=== PATIENT | female | born 1945 | race Caucasian/White ===

== ENCOUNTER → 2017-12-15 13:32 | Outpatient (CLI) | payer MEDICARE, OTHER, SELFPAY ==
--- NOTE | 2017-12-15 | DI.MG.S_ITS ---
BILATERAL DIGITAL SCREENING MAMMOGRAM 3D/2D WITH CAD WITH AUGMENTATION: 12/15/2017 CLINICAL: Routine screening. Family history of breast cancer. Comparison is made to exams dated: 12/11/2016 mammogram and 10/18/2015 mammogram - [facility]. The tissue of both breasts is predominantly fatty. Current study was also evaluated with a Computer Aided Detection (CAD) system. There are benign calcifications in both breasts. Bilateral breast implants are stable. No significant masses, calcifications, or other findings are seen in either breast. There has been no significant interval change. IMPRESSION: BENIGN There is no mammographic evidence of malignancy. A 1 year screening mammogram is recommended. This exam was interpreted at Station ID: [id number]. NOTE: For mammograms, a report in lay terms will be sent to the patient. Approximately 15% of breast malignancies will not be visualized mammographically. In the management of a palpable breast mass, a negative mammogram must not discourage biopsy of a clinically suspicious lesion. Electronically Signed By: Fabi martinez/kaushik:12/15/2017 16:30:32 letter sent: Normal Exam ACR BI-RADS Category 2: Benign Finding(s) 3342F
== END ==
PROVIDERS: Visit Provider Physician Assistant
DX: Z12.31 Encounter for screening mammogram for malignant neoplasm of breast (principal); Z80.3 Family history of malignant neoplasm of breast
CPT/HCPCS: 77063; 77067

== ENCOUNTER → 2018-10-11 09:37 | Outpatient (CLI) | payer MEDICARE, OTHER, SELFPAY | PROVIDERS: PCP Student in an Organized Health Care Education/Training Program; Visit Provider Student in an Organized Health Care Education/Training Program | DX: M85.88 Other specified disorders of bone density and structure, other site (principal) | CPT/HCPCS: 77080 ==

== ENCOUNTER → 2018-12-16 10:35 | Outpatient (CLI) | payer MEDICARE, OTHER, SELFPAY ==
--- NOTE | 2018-12-16 | DI.MG.S_ITS ---
BILATERAL DIGITAL SCREENING MAMMOGRAM 3D/2D WITH CAD WITH AUGMENTATION: 12/16/2018 CLINICAL: Routine screening. Family history of breast cancer. Comparison is made to exams dated: 12/15/2017 mammogram - [facility], 12/11/2016 mammogram, and 10/18/2015 mammogram - [facility]. The tissue of both breasts is predominantly fatty. Current study was also evaluated with a Computer Aided Detection (CAD) system. Bilateral breast implants are stable. There are benign calcifications in both breasts. No significant masses, calcifications, or other findings are seen in either breast. There has been no significant interval change. IMPRESSION: There is no mammographic evidence of malignancy. A 1 year screening mammogram is recommended. This exam was interpreted at Station ID: [id number]. NOTE: For mammograms, a report in lay terms will be sent to the patient. Approximately 15% of breast malignancies will not be visualized mammographically. In the management of a palpable breast mass, a negative mammogram must not discourage biopsy of a clinically suspicious lesion. Electronically Signed By: Otto hollingsworth/kaushik:12/16/2018 11:47:53 letter sent: Normal Exam ACR BI-RADS Category 2: Benign Finding(s) 3342F
== END ==
PROVIDERS: PCP Student in an Organized Health Care Education/Training Program; Visit Provider Student in an Organized Health Care Education/Training Program
DX: Z12.31 Encounter for screening mammogram for malignant neoplasm of breast (principal); Z80.3 Family history of malignant neoplasm of breast
CPT/HCPCS: 77063; 77067

== ENCOUNTER → 2018-12-17 15:20 | Outpatient (ROUT) | payer MEDICARE, OTHER, SELFPAY ==
[2018-12-17 16:40] LABS: Add Manual Diff / Slide Review NO; Basophils Absolute Auto 0 /uL (0-100); Basophils Percent Auto 0.7 % (0-2); Eosinophils Absolute Auto 200 /uL (0-450); Hematocrit 42.7 % (36-46); Hemoglobin 14.2 g/dL (12.0-16.0); Lymphocytes Absolute Auto 1400 /uL (1100-4500); Lymphocytes Percent Auto 33.3 % (25-40); Mean Corpuscular HGB Conc 33.2 % (30-36); Mean Corpuscular Hemoglobin 31.3 PG (26-34); Mean Corpuscular Volume 94.5 fL (80-100); Monocytes Absolute Auto 300 /uL (0-900); Monocytes Percent Auto 7.7 % (3-14); Neutrophils Absolute Auto 2300 /uL (1500-7000); Neutrophils Percent Auto 53.3 % (50-75); Platelet Count 218 X10^3/uL (150-400); Red Blood Cell Count 4.52 X10^6/uL (4.0-5.2); Red Cell Distribution Width 12.8 % (11.6-14.8); White Blood Cell Count 4.3 X10^3/uL (4.5-11.0)
[2018-12-17 16:49] LABS: Alanine Aminotransferase 17 IU/L (9-52); Albumin 4.2 g/dL (3.5-5.0); Albumin Globulin Ratio 1.5 (1.0-2.8); Alkaline Phosphatase 88 U/L (38-126); Aspartate Aminotransferase 25 IU/L (14-36); BUN Creatinine Ratio 15.6 (6-22); Bilirubin Total 0.6 mg/dL (0.2-1.3); Blood Urea Nitrogen 14 mg/dL (7-17); Calcium 9.7 mg/dL (8.4-10.2); Carbon Dioxide 28 mmol/L (22-32); Chloride 103 mmol/L (98-107); Cholesterol 238 mg/dL (140-199); Estimated Glomerular Filt Rate > 60.0 mL/min (>60); Globulin 2.8 g/dL (1.7-4.1); Glucose 90 mg/dL (80-110); HDL Cholesterol 52 mg/dL (40-60); HEMOLYSIS < 15 (0-50); LDL Cholesterol Calculated 143 mg/dL (<100); Potassium 4.3 mmol/L (3.4-5.1); Sodium 140 mmol/L (137-145); Triglycerides 217 mg/dL (35-150)
[2018-12-17 17:18] LABS: TSH w/ Reflex to FT4 2.23 uIU/mL (0.47-4.68)
[2018-12-17 17:36] LABS: Vitamin B12 > 1000 pg/mL (239-931)
[2018-12-21 16:37] LABS: Rubeola Measles IgG > 300.00 AU/mL (< 25.00)
== END ==
PROVIDERS: PCP Student in an Organized Health Care Education/Training Program; Visit Provider Student in an Organized Health Care Education/Training Program
DX: I10 Essential (primary) hypertension (principal); Z11.59 Encounter for screening for other viral diseases; E78.5 Hyperlipidemia, unspecified; Z13.228 Encounter for screening for other metabolic disorders; M85.80 Other specified disorders of bone density and structure, unspecified site
CPT/HCPCS: 80053; 80061; 82607; 84443; 85025; 86735; 86762; 86765

== ENCOUNTER → 2020-01-20 16:51 | Outpatient (CLI) | payer MEDICARE, OTHER, SELFPAY ==
--- NOTE | 2020-01-20 16:56 | DI.MG.S_ITS ---
BILATERAL DIGITAL SCREENING MAMMOGRAM 3D/2D WITH CAD WITH AUGMENTATION: 01/20/2020 CLINICAL: Routine screening. Family history of breast cancer. Comparison is made to exams dated: 12/16/2018 mammogram, 12/15/2017 mammogram - [facility], and 12/11/2016 mammogram - [facility]. There are scattered fibroglandular elements in both breasts. Current study was also evaluated with a Computer Aided Detection (CAD) system. Bilateral breast implants are stable. There are benign calcifications in both breasts. No significant masses, calcifications, or other findings are seen in either breast. There has been no significant interval change. IMPRESSION: BENIGN There is no mammographic evidence of malignancy. A 1 year screening mammogram is recommended. This exam was interpreted at Station ID: [id number]. NOTE: For mammograms, a report in lay terms will be sent to the patient. Approximately 15% of breast malignancies will not be visualized mammographically. In the management of a palpable breast mass, a negative mammogram must not discourage biopsy of a clinically suspicious lesion. Electronically Signed By: Otto hollingsworth/kaushik:01/21/2020 09:23:46 letter sent: Normal Exam ACR BI-RADS Category 2: Benign Finding(s) 3342F
== END ==
PROVIDERS: PCP Student in an Organized Health Care Education/Training Program; Referring Provider Student in an Organized Health Care Education/Training Program; Visit Provider Student in an Organized Health Care Education/Training Program
DX: Z12.31 Encounter for screening mammogram for malignant neoplasm of breast (principal); Z80.3 Family history of malignant neoplasm of breast
CPT/HCPCS: 77063; 77067

== ENCOUNTER → 2020-05-19 09:30 | Outpatient (CLI) | payer MEDICARE, OTHER, SELFPAY ==
[2020-05-19 12:20] LABS: COVID19 -Nasal RAPID Negative (Negative)
== END ==
PROVIDERS: PCP Student in an Organized Health Care Education/Training Program; Visit Provider Nurse Practitioner
DX: Z01.812 Encounter for preprocedural laboratory examination (principal); Z20.822 Contact with and (suspected) exposure to COVID-19
CPT/HCPCS: 87635; C9803

== ENCOUNTER → 2020-05-21 13:29 | Outpatient (CLI) | payer MEDICARE, OTHER, SELFPAY ==
--- NOTE | 2020-05-21 | DI.ECHO.S_ITS ---
[facility] +---------+ : : [id number] : : : : [id number] : : : : Phone: [phone] Echocardiogram Report + + :Name: ADAMA PARRA Study Date: 05/21/2020 Height: 67 in : :[facility] ReadingLocation: Weight: 144 lb : : Gender: Female BSA: 1.8 m2 : :: 1945 Age: 75 yrs BP: 141/94 mmHg: :Reason For Study: SUPRAVENTRICULAR TACHYCARDIA : :Ordering Physician: KYLIE, : :ERICK Performed By: Christina Lopez : :Referring: ERICK PERAZA : + + Interpretation Summary 1) Normal left ventricular size, thickness, wall motion, and systolic function (EF 60-65%). 2) Normal right ventricular size and function. 3) No significant valvular abnormalities. 4) No prior Echo available for comparison. Procedure: A two-dimensional transthoracic echocardiogram with color flow and Doppler was performed. The study quality was technically adequate. There is no prior echocardiogram noted for this patient. The patient was in sinus rhythm with heart rates between 62-73 bpm during the exam. Left Ventricle: The left ventricle is normal in size and wall thickness. The ejection fraction is estimated to be 60-65%. Left ventricular systolic function appears normal without focal wall motion abnormalities. Right Ventricle: The right ventricle is normal in size and function. Atria: Both atria are normal in size. There is no Doppler evidence for an interatrial shunt. Mitral Valve: The mitral valve is normal in structure and function. There is trace mitral regurgitation. Aortic Valve: The aortic valve is trileaflet. The aortic valve opens well. There is no aortic valve stenosis. No aortic regurgitation is present. Tricuspid Valve: The tricuspid valve is normal in structure and function. There is a trace or physiologic amount of tricuspid regurgitation. Pulmonary artery pressures cannot be estimated because of the lack of a measurable TR jet velocity but the IVC suggests a CVP of around 3 mmHg. Pulmonic Valve: The pulmonic valve leaflets are thin and pliable; valve motion is normal. There is mild pulmonic regurgitation. Great Vessels: The aortic root is normal size. The dimensions of the ascending aorta are normal. The IVC is of normal diameter and collapses greater than 50% with a sniff. This suggests a low right atrial pressure of 3 mm Hg. Pericardium/ Pleura There is no pericardial effusion. There is no pleural effusion. MMode/2D Measurements & Calculations LVIDd: 4.3 cm LVOT diam: 2.1 cm LVIDs: 2.7 cm Ao root diam: 3.4 cm FS: 38.7 % asc Aorta Diam: 3.1 cm EPSS: 0.49 cm Ao Arch Diam (Prox Trans): 2.9 cm IVSd: 0.91 cm LVPWd: 1.0 cm LV boone. diameter/BSA (cm/m^2): 2.5 LV sys. diameter/BSA (cm/m^2): 1.5 LA A2 area: 17.3 cm2 RA long axis: 5.0 cm LA A4 area: 12.0 cm2 RA area: 13.5 cm2 LA length (vol): 4.1 cm RA vol: 31.1 ml LA vol: 43.0 ml RA : 17.7 ml/m2 LA vol index: 24.5 ml/m2 IVC diam: 1.00 cm RVD1 (basal): 2.7 cm TAPSE: 1.9 cm Doppler Measurements & Calculations Ao V2 max: 95.8 cm/sec LVOT Max Frank: 91.4 cm/sec Ao V2 mean: 68.9 cm/sec LV V1 max P.3 mmHg Ao max P.7 mmHg LV V1 VTI: 22.4 cm Ao mean P.1 mmHg MARTA(I,D): 3.4 cm2 Ao V2 VTI: 22.0 cm MARTA(V,D): 3.2 cm2 sev ratio: 1.0 MARTA indexed to BSA (cm^2/m^2): 1.9 MV E max frank: 73.7 cm/sec PA V2 max: 64.6 cm/sec MV A max frank: 65.7 cm/sec PA V2 mean: 39.9 cm/sec MV E/A: 1.1 PA mean P.77 mmHg Med Peak E' Frank: 5.1 cm/sec PA pr(Accel): 17.3 mmHg E/E' med: 14.5 Lat Peak E' Frank: 7.0 cm/sec E/E' lat: 10.5 E/e' average: 12.5 MV dec time: 0.22 sec SV(LVOT): 74.2 ml Reading Physician:08:48 PM
--- NOTE | 2020-05-21 16:00 | PM.TREADMILL ---
Cardiac Stress Test Report Referral & Results Date Patient Seen: 05/21/20 Time Patient Seen: 16:00 Requesting provider: Jonnathan Peraza Indication: SVT Rest ECG: sinus rhythm Procedure Note: Standard Moe protocol, 6:30, 6.5 METS Very Good exercise capacity, WHIT -24% Normal hemodynamic response to exercise No chest pain or anginal symptoms No significant ST changes at peak exercise but technically difficult tracing due to motion artifact No ectopy Impression: Normal exercise stress test Please note: Actual ECG tracings can be found in the PACS system.
--- NOTE | 2020-05-21 19:51 | DI.NM.S_ITS ---
DATE OF SERVICE: 05/21/2020 PROCEDURE: Exercise perfusion study. INDICATION: Palpitation, atrial tachycardia. EXERCISE STRESS TEST: The patient underwent exercise stress test under the supervision of an attending staff. She walked on Moe protocol for 6 minutes 30 seconds, achieved 100.4 percent of target heart rate with maximum heart rate about 152 beats per minute. Resting blood pressure about 132/82. Peak blood pressure 178/88. The patient achieved 7 METs of workload and functional aerobic impairment -24 percent. No chest pain or anginal symptoms. Baseline rhythm was sinus. During exercise, there were significant artifacts seen which makes stress EKG uninterpretable. However, in immediate recovery and early recovery, no significant ischemic changes seen. No significant arrhythmias seen. CONCLUSION: The stress electrocardiogram is uninterpretable. However, in early recovery and immediate recovery, no obvious ischemic changes or significant arrhythmias seen. Excellent exercise capacity. WHIT -24 percent. Normal hemodynamic response. No anginal symptoms. Correlate clinically. Rosio Arzola - Patricio/cele doc#: [id number]/job#: [id number] dd: 05/21/2020 17:34:00 dt: 05/21/2020 19:37:00 DICTATING MD/COPIES TO: Alessia Diallo MD COPIES MNE: EDUARDO;
== END ==
PROVIDERS: PCP Student in an Organized Health Care Education/Training Program; Referring Provider Internal Medicine Cardiovascular Disease; Visit Provider Internal Medicine Cardiovascular Disease
DX: I37.1 Nonrheumatic pulmonary valve insufficiency (principal); I47.1 Supraventricular tachycardia; R00.2 Palpitations
CPT/HCPCS: 93017; 93306

== ENCOUNTER → 2021-02-01 15:38 | Outpatient (CLI) | payer MEDICARE, OTHER, SELFPAY ==
--- NOTE | 2021-02-01 | DI.MG.S_ITS ---
BILATERAL DIGITAL SCREENING MAMMOGRAM 3D/2D WITH CAD WITH AUGMENTATION: 02/01/2021 CLINICAL: Patient presents for routine screening. S/P bilateral augmentation. Family history of breast cancer. Comparison is made to exams dated: 01/20/2020 mammogram, 12/16/2018 mammogram, and 12/15/2017 mammogram - [facility]. There are scattered fibroglandular elements in both breasts. Current study was also evaluated with a Computer Aided Detection (CAD) system. Bilateral breast implants are stable. There are benign calcifications in both breasts. No significant masses, calcifications, or other findings are seen in either breast. There has been no significant interval change. IMPRESSION: BENIGN There is no mammographic evidence of malignancy. A 1 year screening mammogram is recommended. This exam was interpreted at Station ID: [id number]. NOTE: For mammograms, a report in lay terms will be sent to the patient. Approximately 15% of breast malignancies will not be visualized mammographically. In the management of a palpable breast mass, a negative mammogram must not discourage biopsy of a clinically suspicious lesion. Electronically Signed By: Romulo Hinkle acr/penrad:02/01/2021 17:08:58 letter sent: Normal Exam ACR BI-RADS Category 2: Benign Finding(s) 3342F
== END ==
PROVIDERS: PCP Student in an Organized Health Care Education/Training Program; Referring Provider Student in an Organized Health Care Education/Training Program; Visit Provider Student in an Organized Health Care Education/Training Program
DX: Z12.31 Encounter for screening mammogram for malignant neoplasm of breast (principal); Z80.3 Family history of malignant neoplasm of breast; Z98.82 Breast implant status
CPT/HCPCS: 77063; 77067

== ENCOUNTER → 2021-10-11 09:59 | Outpatient (CLI) | payer MEDICARE, OTHER, SELFPAY | PROVIDERS: PCP Student in an Organized Health Care Education/Training Program; Referring Provider Student in an Organized Health Care Education/Training Program; Visit Provider Student in an Organized Health Care Education/Training Program | DX: Z78.0 Asymptomatic menopausal state (principal); M85.89 Other specified disorders of bone density and structure, multiple sites | CPT/HCPCS: 77080 ==

== ENCOUNTER → 2022-02-10 13:38 | Outpatient (CLI) | payer MEDICARE, OTHER, SELFPAY ==
--- NOTE | 2022-02-10 | DI.MG.S_ITS ---
BILATERAL DIGITAL SCREENING MAMMOGRAM 3D/2D WITH CAD WITH AUGMENTATION: 02/10/2022 CLINICAL: Routine screening. Family history of breast cancer. Comparison is made to exams dated: 02/01/2021 mammogram, 01/20/2020 mammogram, and 12/16/2018 mammogram - [facility]. There are scattered areas of fibroglandular density in both breasts (category b / 25%-50% glandular tissue). Current study was also evaluated with a Computer Aided Detection (CAD) system. Bilateral breast implants are stable. There are benign calcifications in both breasts. No significant masses, calcifications, or other findings are seen in either breast. There has been no significant interval change. IMPRESSION: BENIGN There is no mammographic evidence of malignancy. A 1 year screening mammogram is recommended. Based on the Tyrer Cuzick model (a risk assessment model) the patient's lifetime risk is 6.0% and her 10 year risk is 0.0%. According to the ACR, ACS, and NCCN guidelines, an annual breast MRI exam along with mammogram is recommended if the patient's lifetime risk is 20% or greater. This exam was interpreted at Station ID: [id number]. NOTE: For mammograms, a report in lay terms will be sent to the patient. Approximately 15% of breast malignancies will not be visualized mammographically. In the management of a palpable breast mass, a negative mammogram must not discourage biopsy of a clinically suspicious lesion. Electronically Signed By: Malcolm Little M.D., jr/kaushik:02/10/2022 15:49:20 letter sent: Normal Exam ACR BI-RADS Category 2: Benign Finding(s) 3342F
== END ==
PROVIDERS: PCP Student in an Organized Health Care Education/Training Program; Referring Provider Student in an Organized Health Care Education/Training Program; Visit Provider Student in an Organized Health Care Education/Training Program
DX: Z12.31 Encounter for screening mammogram for malignant neoplasm of breast (principal); Z80.3 Family history of malignant neoplasm of breast
CPT/HCPCS: 77063; 77067

== ENCOUNTER 2022-06-01 10:16 | Emergency (ER) | payer MEDICARE, OTHER, SELFPAY ==
[2022-06-01 10:45] VITALS: BP 170/85; PULSE 73; RESP 18; TEMP 36.4; O2SAT 97; BMI 22.4
[2022-06-01 11:01] LABS: Appearance Urine UA CLEAR; Bilirubin Urine UA NEGATIVE (NEGATIVE); Color Urine UA YELLOW; Glucose Urine UA NEGATIVE (Negative); Ketones Urine UA NEGATIVE (NEGATIVE); Leukocyte Esterase Urine UA TRACE (NEGATIVE); Nitrite Urine UA NEGATIVE (Negative); Occult Blood Urine UA TRACE-INTACT (Negative); Protein Urine UA NEGATIVE (Negative); Specific Gravity Urine UA <=1.005 (1.000-1.035); Urobilinogen Urine UA 0.2 E.U./dL (0.2)
[2022-06-01 11:07] LABS: pH Urine UA 6.5 (4.5-8.0)
[2022-06-01 11:44] LABS: Bacteria Urine Few (2-10); Culture Indicated Urine Cult Not Indicated; RBC Urine 0-1/HPF (0-5/HPF); Squamous Epithelial Cell Urine None Seen (0-5/HPF); WBC Urine 0-1/HPF (0-5/HPF)
== END 2022-06-01 12:20 | disposition left against medical advice (07) ==
PROVIDERS: Emergency Provider Emergency Medicine; PCP Student in an Organized Health Care Education/Training Program
DX: R30.0 Dysuria (principal)
CPT/HCPCS: 81001; 99281

== ENCOUNTER → 2023-02-20 10:58 | Outpatient (CLI) | payer MEDICARE, OTHER, SELFPAY ==
--- NOTE | 2023-02-20 11:00 | DI.MG.S_ITS ---
BILATERAL DIGITAL SCREENING MAMMOGRAM 3D/2D WITH CAD WITH AUGMENTATION: 02/20/2023 CLINICAL: Routine screening. Family history of breast cancer. Comparison is made to exams dated: 02/10/2022 mammogram, 02/01/2021 mammogram, and 01/20/2020 mammogram - [facility]. There are scattered areas of fibroglandular density in both breasts (category b / 25%-50% glandular tissue). Current study was also evaluated with a Computer Aided Detection (CAD) system. Bilateral breast implants are present. There are benign calcifications in both breasts. No significant masses, calcifications, or other findings are seen in either breast. There has been no significant interval change. IMPRESSION: BENIGN There is no mammographic evidence of malignancy. A 1 year screening mammogram is recommended. Based on the Tyrer Cuzick model (a risk assessment model) the patient's lifetime risk is 5.4% and her 10 year risk is 0.0%. According to the ACR, ACS, and NCCN guidelines, an annual breast MRI exam along with mammogram is recommended if the patient's lifetime risk is 20% or greater. This exam was interpreted at Station ID: [id number]. NOTE: For mammograms, a report in lay terms will be sent to the patient. Approximately 15% of breast malignancies will not be visualized mammographically. In the management of a palpable breast mass, a negative mammogram must not discourage biopsy of a clinically suspicious lesion. Electronically Signed By: Claude oakley/kaushik:02/20/2023 12:43:08 letter sent: Normal Exam ACR BI-RADS Category 2: Benign Finding(s) 3342F
== END ==
PROVIDERS: PCP Student in an Organized Health Care Education/Training Program; Referring Provider Student in an Organized Health Care Education/Training Program; Visit Provider Student in an Organized Health Care Education/Training Program
DX: Z12.31 Encounter for screening mammogram for malignant neoplasm of breast (principal); Z80.3 Family history of malignant neoplasm of breast
CPT/HCPCS: 77063; 77067

== ENCOUNTER → 2023-10-22 10:03 | Outpatient (CLI) | payer MEDICARE, OTHER, SELFPAY ==
--- NOTE | 2023-10-22 10:05 | DI.RAD.S_ITS ---
PROCEDURE: XR DEXA AXIAL SKELETON INDICATIONS: OSTEOPENIA COMPARISON: [facility], CR, XR DEXA AXIAL SKELETON, 10/11/2021, 10:34. FINDINGS: Lumbar Spine: Bone mineral density 0.886 g/cm2, T score -2.0, compared to -2.0,. Left Hip: Bone mineral density 0.708 g/cm2, T score -1.9, compared to -1.8,. Left Femoral Neck: Bone mineral density 0.640 g/cm2, T score -1.9, compared to -1.8,. Right Hip: Bone mineral density 0.657 g/cm2, T score -2.3, compared to -2.2,. Right Femoral Neck: Bone mineral density 0.593 g/cm2, T score -2.3, compared to -2.4,. Fracture Risk Calculation (when applicable): 10-year fracture risk of a major osteoporotic fracture 29% and of a hip fracture 19% on the right and 24% and 15% respectively on.. (T score greater or equal to -1.0 to: NORMAL) (T score from -1.1 to -2.4: OSTEOPENIA) (T score less than or equal to -2.5: OSTEOPOROSIS) IMPRESSION: There is persistent appearance of moderate to severe osteopenia within the spine and hips bilaterally relatively stable. Follow-up guidelines as follows: Osteoporosis: Consider a repeat DEXA and Vertebral Fracture Assessment (VFA) exam in 2 years or sooner if medically necessary, to reassess this patient's status. Osteopenia: Consider a repeat DEXA in 2-3 years to reassess this patient's status, or if there is a new clinical indication. Normal: Consider a repeat DEXA in 5 years or sooner, or if there is a new clinical indication. All treatment decisions require clinical judgment and consideration of individual patient factors, including patient preferences, comorbidities, previous drug use, risk factors not captured in the FRAX model (e.g., frailty, falls, vitamin D deficiency, increased bone turnover, interval significant decline in bone density ) and possible under- or over-estimation of fracture risk by FRAX. In addition, the NOF Guide recommends that FDA-approved medical therapies be considered in postmenopausal women and men age >= 50 years with a: * Hip or vertebral (clinical or morphometric) fracture * T-score of <=-2.5 at the spine or hip * Ten-year fracture probability by FRAX of >= 3% for hip fracture or >=20% for major osteoporotic fracture. People with diagnosed cases of osteoporosis or at high risk for fracture should have regular bone mineral density tests. For patients eligible for Medicare, routine testing is allowed once every 2 years. The testing frequency can be increased to one year for patients who have rapidly progressing disease, those who are receiving or discontinuing medical therapy to restore bone mass, or have additional risk factors. Dictated by: Tamica Shahid M.D. on 10/22/2023 at 23:09 Approved by: Tamica Shahid M.D. on 10/22/2023 at 23:10
== END ==
PROVIDERS: PCP Student in an Organized Health Care Education/Training Program; Referring Provider Student in an Organized Health Care Education/Training Program; Visit Provider Student in an Organized Health Care Education/Training Program
DX: M85.89 Other specified disorders of bone density and structure, multiple sites (principal); N95.9 Unspecified menopausal and perimenopausal disorder
CPT/HCPCS: 77080

== ENCOUNTER → 2024-03-08 14:09 | Outpatient (CLI) | payer MEDICARE, OTHER, SELFPAY ==
--- NOTE | 2024-03-08 14:11 | DI.MG.S_ITS ---
BILATERAL DIGITAL SCREENING MAMMOGRAM 3D/2D WITH CAD WITH AUGMENTATION: 03/08/2024 CLINICAL: Routine screening. Family history of breast cancer. Comparison is made to exams dated: 02/20/2023 mammogram, 02/10/2022 mammogram, 02/01/2021 mammogram, 01/20/2020 mammogram, and 12/16/2018 mammogram - [facility]. There are scattered areas of fibroglandular density (category b / 25%-50% glandular tissue). Current study was also evaluated with a Computer Aided Detection (CAD) system. Bilateral breast implants are intact. No significant masses, calcifications, or other findings are seen in either breast. There has been no significant interval change. IMPRESSION: BENIGN There is no mammographic evidence of malignancy. A 1 year screening mammogram is recommended. Based on the Tyrer Cuzick model (a risk assessment model) the patient's lifetime risk is 4.8% and her 10 year risk is 0.0%. According to the ACR, ACS, and NCCN guidelines, an annual breast MRI exam along with mammogram is recommended if the patient's lifetime risk is 20% or greater. This exam was interpreted at Station ID: [id number]. NOTE: For mammograms, a report in lay terms will be sent to the patient. Approximately 15% of breast malignancies will not be visualized mammographically. In the management of a palpable breast mass, a negative mammogram must not discourage biopsy of a clinically suspicious lesion. Electronically Signed By: Sultana Ray M.D., Ph.D. cornell/kaushik:03/09/2024 17:33:17 letter sent: Normal Exam ACR BI-RADS Category 2: Benign
== END ==
PROVIDERS: PCP Student in an Organized Health Care Education/Training Program; Referring Provider Student in an Organized Health Care Education/Training Program; Visit Provider Student in an Organized Health Care Education/Training Program
DX: Z12.31 Encounter for screening mammogram for malignant neoplasm of breast (principal); Z80.3 Family history of malignant neoplasm of breast; Z98.82 Breast implant status
CPT/HCPCS: 77063; 77067

== ENCOUNTER 2024-06-21 06:33 | Emergency (ER) | payer MEDICARE, OTHER, SELFPAY ==
[2024-06-21] VITALS (8 sets, daily range): BP systolic 116–171; BP diastolic 63–107; PULSE 75–98; RESP 17–18; TEMP 36.8–36.9; O2SAT 93–98; BMI 21.7
--- NOTE | 2024-06-21 06:45 | DI.CT.S_ITS ---
PROCEDURE: CT ABDOMEN PELVIS W CON INDICATIONS: suprapubic and LLQ pain TECHNIQUE: After the administration of intravenous contrast, axial sections acquired from the lung bases to the pubic symphysis. Coronal and sagittal reformats were performed. For radiation dose reduction, the following was used: automated exposure control, adjustment of mA and/or kV according to patient size. COMPARISON: None. FINDINGS: Image quality: Diagnostic. Lower Chest: No significant findings. Calcified breast implants. ABDOMEN: Liver: No solid mass. Gallbladder: Absent. Biliary ducts: No biliary dilation. Pancreas: No ductal dilation. Spleen: Size is within normal limits. Adrenal Glands: No adrenal nodules. Kidneys and Ureters: No hydronephrosis. No solid mass. No complex renal cystic lesion which requires follow up. Benign cyst at the inferior pole the left kidney measuring 4.6 cm. Stomach and Bowel: The stomach is not distended. The gastric pylorus is somewhat prominent. The duodenum is unremarkable. No small bowel obstruction. The appendix is not dilated. Colonic diverticulosis. Sigmoid colon diverticulitis. Suspected mural fluid collection measuring 2.5 x 2 x 1.7 cm, estimated volume of 4 cc, (2/115). There is mild adjacent fat stranding. No adjacent extraluminal gas. No obstruction. Peritoneum: No ascites. No pneumoperitoneum. Ventral Wall: No significant ventral hernia. Abdominal Nodes: No retroperitoneal or mesenteric adenopathy by size criteria. Vessels: Aorta and inferior vena cava are normal in size. Calcified atherosclerotic plaque. PELVIS: Pelvic Organs: Uterus is absent. Bladder: No bladder wall thickening. Pelvic Nodes: No enlarged lymph nodes. Miscellaneous: No inguinal hernias are seen. Bones: No aggressive osseous abnormality. Anterolisthesis of L4 on L5 measuring 0.6 cm. DDD most pronounced at L5-S1. IMPRESSION: Sigmoid colon diverticulitis. Suspected mural abscess measuring 2.5 cm and volume of approximately 4 cc. Recommend continued clinical surveillance and management. If symptoms worsen follow-up CT abdomen pelvis would be helpful for further evaluation for enlarging fluid collection that may merit drainage. No significant discrepancy with the overnight preliminary interpretation Dictated by: Eleazar Alves M.D. on 06/21/2024 at 8:15 Approved by: Eleazar Alves M.D. on 06/21/2024 at 8:27
--- NOTE | 2024-06-21 06:45 | ED_ITS ---
HPI - Abdominal Pain <Nava Hayden DO - Last Filed: 06/22/24 02:07> General Chief Complaint: Abdominal Pain Stated Complaint: abd pain Time Seen by Provider: 06/21/24 06:38 Source: patient, RN notes reviewed and old records reviewed Mode of arrival: Ambulatory Limitations: no limitations History of Present Illness HPI narrative: 79-year-old female history of hypertension presents with complaint of suprapubic pain it has been present for several days. Patient denies any fevers or chills. No nausea or vomiting. States bowel movements of sometimes has been somewhat constipated and hard alternating with looser he even throughout the day. No black or bloody stools. No dysuria, urgency or frequency. No hematuria. No back or flank pain. Patient denies any rash or skin changes. States sort of a cramping sensation that did described as suprapubic sort of comes and goes. Not always but sometimes associated with bowel movements. Patient did take some Tylenol prior to arrival which they states seems to have helped. States only prior intra-abdominal surgeries cholecystectomy. Reports an allergy to sulfa. No tobacco, occasional alcohol, no recreational drugs. Has primary care and [facility]. Patient has had a colonoscopy in the past. Related Data Home Medications Medication Instructions Recorded Confirmed lisinopril 5 mg tablet ##0 06/24/17 07/02/21 lovastatin 10 mg tablet 10 mg PO DAILY 07/02/21 07/02/21 Previous Rx's Medication Instructions Recorded amoxicillin 875 mg-potassium 1 tab PO BID #20 tabs 06/21/24 clavulanate 125 mg tablet Allergies Allergy/AdvReac Type Severity Reaction Status Date / Time Sulfa (Sulfonamide Allergy Unknown Verified 06/21/24 08:26 Antibiotics) [SULFA (SULFONAMIDE ANTIBIOTICS)] Review of Systems <Nava Hayden DO - Last Filed: 06/22/24 02:07> Review of Systems ROS Unobtainable: All systems reviewed & are unremarkable except as noted in HPI and below Patient History <Nava Hayden DO - Last Filed: 06/22/24 02:07> Medical History Hearing loss (~2019) Social History Smoking Status: Never smoker Smoking Status: Never smoker alcohol intake frequency: holidays/special occasions only Exam <Nava Hayden DO - Last Filed: 06/22/24 02:07> Narrative Exam Narrative: GENERAL: Alert and oriented x three, female in mild distress HEENT: Head normocephalic, atraumatic, EOMI, pupils reactive, face symmetric, moist mucous membranes NECK: Supple, full range of motion CARDIOVASCULAR: Regular rate and rhythm without murmurs, rubs or gallops. RESPIRATORY: Breath sounds equal bilaterally, no wheezes rales or rhonchi. ABDOMEN: Soft, positive for left lower quadrant tenderness. Normoactive bowel sounds all 4 quadrants. No guarding or rebound, rigidity, no mass : No CVA tenderness EXTREMITIES: Normal range of motion, no clubbing or edema. Neurovascularly intact NEUROLOGICAL: Cranial nerves II through XII grossly intact. Moving all extremities SKIN: Warm, dry, no petechiae, no rashes or lesions. Initial Vital Signs Initial Vital Signs: Vital Signs Pulse Oximetry 96 06/21/24 06:37 <Anegla Henao MD - Last Filed: 06/21/24 08:21> Initial Vital Signs Initial Vital Signs: Vital Signs Pulse Oximetry 96 06/21/24 06:37 Course <Nava Hayden DO - Last Filed: 06/22/24 02:07> Orders Ordered: Discontinued Medications Amoxicillin/Clavulanate Potassium (Amoxicillin/Clav 875/125 Mg) 1 tab PO NOW ONE Stop: 06/21/24 08:21 Last Admin: 06/21/24 08:27 Dose: 1 tab Documented By: SALVADOR Vital Signs Vital signs: Vital Signs - 8 hr 06/21/24 06:40 Temperature 98.2 F Pulse Rate 98 H Respiratory Rate 17 Blood Pressure 171/107 H Pulse Oximetry 98 Oxygen Delivery Method Room Air <Angela Henao MD - Last Filed: 06/21/24 08:21> Orders Ordered: Discontinued Medications Amoxicillin/Clavulanate Potassium (Amoxicillin/Clav 875/125 Mg) 1 tab PO NOW ONE Stop: 06/21/24 08:21 Last Admin: 06/21/24 08:27 Dose: 1 tab Documented By: SALVADOR Vital Signs Vital signs: Vital Signs - 8 hr 03/11/25 06:40 Temperature 98.2 F Pulse Rate 98 H Respiratory Rate 17 Blood Pressure 171/107 H Pulse Oximetry 98 Oxygen Delivery Method Room Air MDM - Abdominal Pain <Nava Hayden, - Last Filed: 06/22/24 02:07> Lab Data 06/21/24 06:40 06/21/24 06:40 Labs: Lab Results 06/21/24 Range/Units 06:40 WBC 10.5 (4.5-11.0) X10^3/uL RBC 4.49 (4.0-5.2) X10^6/uL Hgb 14.3 (12.0-16.0) g/dL Hct 42.6 (36-46) % MCV 94.7 (80-100) fL MCH 31.9 (26-34) PG MCHC 33.7 (30-36) % RDW 13.2 (11.6-14.8) % Plt Count 236 (150-400) X10^3/uL Neut % (Auto) 78.1 H (50-75) % Lymph % (Auto) 13.8 L (25-40) % Parke % (Auto) 6.8 (3-14) % Eos % (Auto) 1.0 L (2-4) % Baso % (Auto) 0.3 (0-2) % Neut # (Auto) 8200 H (7874-5375) /uL Lymph # (Auto) 1400 (0971-8752) /uL Parke # (Auto) 700 (0-900) /uL Eos # (Auto) 100 (0-450) /uL Baso # (Auto) 0 (0-100) /uL Sodium 137 (137-145) mmol/L Potassium 4.4 (3.4-5.1) mmol/L Chloride 104 (98-107) mmol/L Carbon Dioxide 22 (22-32) mmol/L BUN 12 (7-17) mg/dL Creatinine 1.01 (0.52-1.04) mg/dL Estimated GFR 57 L (>60) mL/min BUN/Creatinine Ratio 11.9 (6-22) Glucose 115 H (80-110) mg/dL Calcium 9.5 (8.4-10.2) mg/dL Total Bilirubin 1.1 (0.2-1.3) mg/dL AST 32 (14-36) IU/L ALT 18 (<35) IU/L Alkaline Phosphatase 81 (38-126) U/L Total Protein 7.8 (6.3-8.2) g/dL Albumin 4.5 (3.5-5.0) g/dL Globulin 3.3 (1.7-4.1) g/dL Albumin/Globulin Ratio 1.4 (1.0-2.8) Lipase 76 (23-300) U/L MDM Narrative Medical decision making narrative: 79-year-old female with complaint of suprapubic pain although on examination patient is tender in the left lower quadrant. Plan for labs, imaging and urine. <Angela Henao MD - Last Filed: 06/21/24 08:21> Lab Data Labs: Lab Results 06/21/24 Range/Units 06:40 WBC 10.5 (4.5-11.0) X10^3/uL RBC 4.49 (4.0-5.2) X10^6/uL Hgb 14.3 (12.0-16.0) g/dL Hct 42.6 (36-46) % MCV 94.7 (80-100) fL MCH 31.9 (26-34) PG MCHC 33.7 (30-36) % RDW 13.2 (11.6-14.8) % Plt Count 236 (150-400) X10^3/uL Neut % (Auto) 78.1 H (50-75) % Lymph % (Auto) 13.8 L (25-40) % Parke % (Auto) 6.8 (3-14) % Eos % (Auto) 1.0 L (2-4) % Baso % (Auto) 0.3 (0-2) % Neut # (Auto) 8200 H (8919-8415) /uL Lymph # (Auto) 1400 (2250-3409) /uL Parke # (Auto) 700 (0-900) /uL Eos # (Auto) 100 (0-450) /uL Baso # (Auto) 0 (0-100) /uL Sodium 137 (137-145) mmol/L Potassium 4.4 (3.4-5.1) mmol/L Chloride 104 (98-107) mmol/L Carbon Dioxide 22 (22-32) mmol/L BUN 12 (7-17) mg/dL Creatinine 1.01 (0.52-1.04) mg/dL Estimated GFR 57 L (>60) mL/min BUN/Creatinine Ratio 11.9 (6-22) Glucose 115 H (80-110) mg/dL Calcium 9.5 (8.4-10.2) mg/dL Total Bilirubin 1.1 (0.2-1.3) mg/dL AST 32 (14-36) IU/L ALT 18 (<35) IU/L Alkaline Phosphatase 81 (38-126) U/L Total Protein 7.8 (6.3-8.2) g/dL Albumin 4.5 (3.5-5.0) g/dL Globulin 3.3 (1.7-4.1) g/dL Albumin/Globulin Ratio 1.4 (1.0-2.8) Lipase 76 (23-300) U/L [facility] Narrative Medical decision making narrative: 79-year-old female with complaint of suprapubic pain although on examination patient is tender in the left lower quadrant. Plan for labs, imaging and urine. Complicating co-morbidities: History of hypertension for which he takes 5 mg of lisinopril, she did take this this morning Data collected from: patient Social determinants of health that may influence the patients condition: Medical records reviewed: Minimal records reviewed Differential considered: Diverticulitis, pelvic abscess, obstruction, constipation Exam documented above, pertinent findings include: Since coming into the ER she has not had any severe abdominal cramping issues, minor tenderness in the left lower quadrant without rebound or guarding Lab Test results independently reviewed as above. Pertinent findings: CBC shows no significant anomalies Chemistries are reassuring, normal renal function, no elevated liver studies Lipase is within normal limits Imaging studies independently reviewed: CT scan of the abdomen shows acute diverticulitis of the proximal sigmoid colon. There was an air-fluid level measuring 2.8 cm that is probably in the diverticulum itself no eboni perforation, no lymphadenopathy or obstruction appreciated Treatments: Oral Augmentin Prescription written Discussion: 79-year-old woman with increasing left lower quadrant pain no fevers, no signs of sepsis, no evidence of acute surgical abdomen with belly examined at time of discharge. CT scan suggests developing diverticulitis. She has had uncomplicated diverticulitis before along with a prior recent colonoscopy that was unremarkable. With shared decision-making we opted to begin with Augmentin to treat her symptoms. Tylenol has been effective for pain control we will continue with this. Reviewed reasons to return to the emergency department. There was no indication for hospital admission or additional imaging at this time and she is safe for discharge Discharge Plan Departure Patient Disposition: Home Clinical Impression: Diverticulitis Instructions: DI for Diverticulitis Activity Restrictions/Additional Instructions: Thank you for coming in today Your blood work does not show signs of overwhelming infection, kidney failure, liver problems or sepsis. Your CT scan shows that you are developing diverticulitis. This explains the pain that you are experiencing. There is no overt abscess or rupture at this time. With the otherwise reassuring lab work, the fact that Tylenol is controlling your pain and the ability to eat and drink you are safe for discharge home. I have given you an initial dose of antibiotics, Augmentin today. 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 If you find that you are getting worse or develop any new symptoms, please feel free to return to the emergency department for further evaluation. Prescriptions: New amoxicillin-pot clavulanate 875-125 mg tablet 1 tab PO BID Qty: 20 0RF No Action lisinopril 5 MG tablet Qty: 0 lovastatin 10 mg tablet 10 mg PO DAILY Referrals: Karen White PA-C [Primary Care Provider] - Stand Alone Forms: Patient Portal/API/Survey
[2024-06-21 06:57] LABS: Add Manual Diff / Slide Review NO; Basophils Absolute Auto 0 /uL (0-100); Basophils Percent Auto 0.3 % (0-2); Eosinophils Absolute Auto 100 /uL (0-450); Hematocrit 42.6 % (36-46); Hemoglobin 14.3 g/dL (12.0-16.0); Lymphocytes Absolute Auto 1400 /uL (1100-4500); Lymphocytes Percent Auto 13.8 % (25-40); Mean Corpuscular HGB Conc 33.7 % (30-36); Mean Corpuscular Hemoglobin 31.9 PG (26-34); Mean Corpuscular Volume 94.7 fL (80-100); Monocytes Absolute Auto 700 /uL (0-900); Monocytes Percent Auto 6.8 % (3-14); Neutrophils Absolute Auto 8200 /uL (1500-7000); Neutrophils Percent Auto 78.1 % (50-75); Platelet Count 236 X10^3/uL (150-400); Red Blood Cell Count 4.49 X10^6/uL (4.0-5.2); Red Cell Distribution Width 13.2 % (11.6-14.8); White Blood Cell Count 10.5 X10^3/uL (4.5-11.0)
[2024-06-21 07:14] LABS: Alanine Aminotransferase 18 IU/L (<35); Albumin 4.5 g/dL (3.5-5.0); Albumin Globulin Ratio 1.4 (1.0-2.8); Alkaline Phosphatase 81 U/L (38-126); Aspartate Aminotransferase 32 IU/L (14-36); BUN Creatinine Ratio 11.9 (6-22); Bilirubin Total 1.1 mg/dL (0.2-1.3); Blood Urea Nitrogen 12 mg/dL (7-17); Calcium 9.5 mg/dL (8.4-10.2); Carbon Dioxide 22 mmol/L (22-32); Chloride 104 mmol/L (98-107); Estimated Glomerular Filt Rate 57 mL/min (>60); Globulin 3.3 g/dL (1.7-4.1); Glucose 115 mg/dL (80-110); HEMOLYSIS 18 (0-50); Lipase 76 U/L (23-300); Potassium 4.4 mmol/L (3.4-5.1); Sodium 137 mmol/L (137-145); Total Protein 7.8 g/dL (6.3-8.2)
[2024-06-21] MEDS: AMOXICILLIN/CLAV 875/125 MG 1 TAB PO (08:27)
== END 2024-06-21 08:35 | disposition home or self-care (01) ==
PROVIDERS: Emergency Medicine; Emergency Provider Emergency Medicine; PCP Student in an Organized Health Care Education/Training Program
DX: K57.32 Diverticulitis of large intestine without perforation or abscess without bleeding (principal); Z88.2 Allergy status to sulfonamides
CPT/HCPCS: 36415; 74177; 80053; 83690; 85025; 99283; 99284; Q9967

== ENCOUNTER → 2024-08-03 15:34 | Outpatient (CLI) | payer MEDICARE, OTHER, SELFPAY ==
--- NOTE | 2024-08-03 15:36 | DI.US.S_ITS ---
PROCEDURE: US THYROID INDICATIONS: SOFT TISSUE MASS RIGHT NECK MEDIOLATERAL TO TRACH TECHNIQUE: Real-time scanning was performed of the thyroid gland, with image documentation. COMPARISON: None. FINDINGS: Thyroid: Right lobe measures 5.8 x 1.9 x 1.9 cm. Left lobe measures 4.6 x 1.4 x 1.6 cm. Isthmus is 0.3 cm thick. Echotexture is homogeneous. Nodule number: 1 Location: Left superior/mid Size: 1.0 cm. Composition: Mixed cystic and solid Echogenicity: Hypoechoic Shape: wider than tall. Margins: Smooth Echogenic foci: Punctate calcifications Total points: 6 ACR TI-RADS category: Moderately suspicious IMPRESSION: Left thyroid nodule measuring 1 cm, recommend 1 year follow-up ultrasound based on below criteria. No abnormalities are seen within the patient's palpable area of concern. ACR TI-RADS definitions and recommendations: TI-RADS 1 (benign): 0 points. FNA not needed. TI-RADS 2 (not suspicious): 2 points. FNA not needed. TI-RADS 3: 3 points. * FNA if 2.5 cm or larger, follow up if 1.5 cm or larger (at 1, 3, and 5 years). TI-RADS 4: 4-6 points. * FNA if 1.5 cm or larger, follow up if 1 cm or larger (at 1, 2, 3, and 5 years). TI-RADS 5: 7 points or more. * FNA if 1 cm or larger, follow up if 0.5 cm or larger (every year for 5 years). Dictated by: Neal Grey M.D. on 08/04/2024 at 11:03 Approved by: Neal Grey M.D. on 08/04/2024 at 11:57
== END ==
PROVIDERS: PCP Student in an Organized Health Care Education/Training Program; Referring Provider Nurse Practitioner Family; Visit Provider Nurse Practitioner Family
DX: M79.89 Other specified soft tissue disorders (principal); E04.1 Nontoxic single thyroid nodule
CPT/HCPCS: 76536

== ENCOUNTER → 2025-03-31 14:04 | Outpatient (CLI) | payer MEDICARE, OTHER, SELFPAY ==
--- NOTE | 2025-03-31 14:06 | DI.MG.S_ITS ---
MM screening mammo implant BI: 03/31/2025. BI-RADS: 2 CLINICAL: 79-year old female for bilateral screening mammogram. Tyrer-Cuzick lifetime risk of 2.7%. Current reported family history of breast cancer: mother. The patient has bilateral implants. PRIOR EXAMS 03/08/2024, 02/20/2023, 02/10/2022, 02/01/2021. MAMMOGRAPHY TECHNIQUE: 2D and 3D (tomosynthesis) digital mammographic views obtained, with additional images as needed for full coverage. Current study was also evaluated with a Computer Aided Detection (CAD) system. DENSITY B. There are scattered areas of fibroglandular density. IMPLANTS Breast implants present. MAMMOGRAPHY FINDINGS Bilateral: There are no suspicious masses, calcifications, or other findings in the breast. IMPRESSION: * No evidence of malignancy with benign findings. RECOMMENDATIONS Bilateral * Annual screening mammography. OVERALL ASSESSMENT CATEGORY BI-RADS-2: Benign. The [employer] recommends annual screening mammography beginning at age 40 for women with average risk of breast cancer. ELECTRONICALLY SIGNED: Fina Fenton M.D. on 04/04/2025 at 01:22:35 PM PT Interpreting Station ID: [id number]
== END ==
LOC: MAMMO 14:05
PROVIDERS: PCP Student in an Organized Health Care Education/Training Program; Referring Provider Student in an Organized Health Care Education/Training Program; Visit Provider Physician Assistant
DX: Z12.31 Encounter for screening mammogram for malignant neoplasm of breast (principal); Z98.82 Breast implant status; Z80.3 Family history of malignant neoplasm of breast
CPT/HCPCS: 77063; 77067